=== PATIENT | male | born 1995 | race Caucasian/White ===

== ENCOUNTER 2017-06-10 17:57 | Emergency (ER) | payer SELFPAY ==
--- NOTE | 2017-06-10 19:36 | ERNOTE ---
Medical Problem HPI - Narrative Date of Service: 06/10/17 - General Chief Complaint: Fever Time Seen by Provider: 06/10/17 19:35 Source: patient, RN notes reviewed Exam Limitations: no limitations - Immun/Allergies/Home Medications Immunizations: IMMUNIZATION HX Immunizations Up to Date No History of Influenza Vaccine No Allergies/Adverse Reactions: Allergies clindamycin Allergy (Verified 06/10/17 18:11) tobramycin Allergy (Verified 06/10/17 18:11) Home Medications: HOME MEDICATIONS Promethazine HCl [Phenergan (Promethazine)] 25 mg PO Q4H PRN #16 tab 06/10/17 [ Last Taken Unknown] - History of Present History Narrative: 6 year old male with a cough, fever, sore throat and vomiting for 3 days. His girlfriend has had similar symptoms. He has not been taking anything for his symptoms. He reports being able to tolerate ice chips but not liquids. Date (Duration): 06/07/17 Review of Systems - Review of Systems Constitutional: Present: fever, chills, fatigue, malaise EYE: Absent: eye pain, eye discharge ENT: Present: sore throat. Absent: ear pain, nose congestion, nasal drainage Respiratory: Present: cough. Absent: shortness of breath, wheezing Cardiology: Present: no symptoms reported Gastrointestinal/Abdominal: Present: nausea, vomiting, eating less, drinking less. Absent: diarrhea, constipation, abdominal pain Genitourinary: Absent: dysuria, decreased urinary output Musculoskeletal: Present: muscle pain. Absent: neck pain Skin: Absent: rash, lesions Neurological: Present: headache, dizziness/light-headedness Endocrine: Present: no symptoms reported Hematologic/Lymphatic: Present: no symptoms reported Psych: Present: no symptoms reported - Patient's Past Medical History Patient History - Medical: Seizures Patient History - Cardiac/Respiratory: Asthma Patient History - Cancer: No Hx of Cancer Patient History - Surgical Procedures: Appendectomy - Social History Living Situations: home Smoking Status: Never smoker Alcohol Use: occasionally Drug Use: none - Immunizations Immunizations Up to Date: No History of Influenza Vaccine: No Physical Exam - Physical Exam General Appearance: Present: alert, mild distress, thin Head Exam: Present: normal inspection. Absent: swelling, tenderness Eye Exam: Normal inspection: bilateral Ears, Nose, Throat: Present: pharyngeal erythema. Absent: abnormal TM (R), abnormal TM (L), nasal congestion, sinus pain/drainage, pharyngeal swelling, dry mucous membranes Neck: Present: normal inspection, nontender, supple Respiratory: Present: no respiratory distress, normal breath sounds, no accessory muscle use, lungs clear Cardiovascular/Chest: Present: no murmur, normal peripheral pulses, tachycardia Gastrointestinal/Abdominal: Present: normal bowel sounds, nontender, nondistended, soft Extremity Exam: Present: normal inspection, normal range of motion, no edema Neurological Exam: Present: alert, oriented, normal mood/affect, no motor/ sensory deficits Skin Exam: Present: warm/dry, pallor ED Progress - Results and Orders Patient's Lab Results:: I have reviewed the patient's lab results. - Vital Signs Patient's Vital Signs:: I have reviewed the patient's vital signs. Vital Signs: Vital Signs 06/10/17 18:06 Temperature 38.9 C H Pulse Rate 113 H Respiratory 20 Rate Blood Pressure 116/50 O2 Sat by Pulse 98 Oximetry - Progress/Reassessment Chief Complaint: Fever Progress:: Improved Departure Clinical Impression: Flu-like symptoms - Departure Disposition: Home Follow Up Needed Condition: Stable Instructions: Influenza, Adult, [id number], Form - Excuse from Work, School, or Physical Activity Additional Instructions: Tylenol for fever Return to ER if symptoms worsen or if you have not improved in 2 days Prescriptions: Promethazine HCl [Phenergan (Promethazine)] 25 mg PO Q4H PRN #16 tab PRN Reason: nausea/vomiting
[2017-06-10] MEDS ORDERED: ACETAMINOPHEN 500 MG TABLET PO ONE (19:45)
[2017-06-10] MEDS ORDERED: PROMETHAZINE HCL 25 MG/ML AMPUL IM ONE (20:41)
[2017-06-10] MEDS ORDERED: KETOROLAC TROMETHAMINE 60 MG/2 ML VIAL IM ONE ×2 (20:41→20:45)
[2017-06-10] MEDS ORDERED: PROMETHAZINE HCL 25 MG/ML AMPUL ONE (20:45)
[2017-06-10 21:10] VITALS: BP 110/61
== END 2017-06-10 21:05 | disposition home or self-care (01) ==
LOC: ER 17:57
DX: R05 Cough; R50.9 Fever, unspecified; R51 Headache; M79.1 Myalgia; R53.83 Other fatigue; J02.9 Acute pharyngitis, unspecified; R11.2 Nausea with vomiting, unspecified